=== PATIENT | female | born 1970 | race Caucasian/White ===

== ENCOUNTER → 2017-08-07 | Outpatient (CLI) | payer OTHER ==
[~2017-08-07] MED LIST: CHOL1CAP34 PO; FOLI400T PO; PANT20TA2 PO; SIMV20TA PO; Z.0.NO CURRENT MEDS
[2017-08-07 12:30] LABS: HEMOGLOBIN 14.7 GM/DL (11.6-15.3); MEAN CORPUSCULAR HEMOGLOBIN 30.8 PG (27.0-34.0); MEAN CORPUSCULAR HGB CONC 34.2 % (32.0-36.0); PLATELET COUNT 361 TH/MM3 (150-450); RED BLOOD COUNT 4.78 MIL/MM3 (4.00-5.30); RED CELL DISTRIBUTION WIDTH 14.1 % (11.6-17.2); WHITE BLOOD COUNT 7.8 TH/MM3 (4.0-11.0)
[2017-08-07 12:40] LABS: BACTERIA, URINE OCC /hpf; BILIRUBIN, URINE NEG (NEG); BLOOD, URINE NEG (NEG); GLUCOSE,URINE NEG (NEG); KETONE, URINE NEG (NEG); MUCUS URINE FEW /lpf (OCC); NITRITE,URINE NEG (NEG); SQUAMOUS EPITHELIAL CELL URINE 5 /hpf (0-5); URINE COLOR YELLOW (YELLW/STRAW); URINE LEUKOCYTE ESTERASE LARGE (NEG)
[2017-08-07 13:26] LABS: BICARBONATE 26.4 MEQ/L (21.0-32.0); CALCIUM 9.8 MG/DL (8.5-10.1); CREATININE 0.81 MG/DL (0.50-1.00)
== END ==
LOC: CPRE 11:03
PROVIDERS: ATTEND Obstetrics & Gynecology
DX: Z01.812 Encounter for preprocedural laboratory examination (principal); R10.2 Pelvic and perineal pain
CPT/HCPCS: 36415; 80048; 81001; 84703; 85027

== ENCOUNTER 2017-08-15 06:11 | Inpatient (IN) | payer OTHER ==
[~2017-08-15] VITALS: Ht 160 cm; Wt 55.5 kg
[~2017-08-15 06:11] MED LIST changes: -Z.0.NO CURRENT MEDS
[2017-08-15] MEDS: LACTATED RINGER'S 1000 ML IV PRN (06:55)
[2017-08-15] MEDS ORDERED: SODIUM CHLORID 0.9% 500 ML IV PRN (07:00)
[2017-08-15] MEDS ORDERED: INSULIN HUMAN REGULAR 1,000 UNITS/10 ML VIAL SQ PRN (07:00)
[2017-08-15] MEDS ORDERED: POVIDONE IODINE 5% (ANTISEPSIS KIT) 4 APPLICATIONS EACH NARE PRN (07:00)
[2017-08-15] MEDS ORDERED: METOPROLOL TARTRATE 25 MG TAB PO PRN (07:00)
[2017-08-15] MEDS ORDERED: APREPITANT 40 MG CAP PO SCH (07:00)
[2017-08-15] MEDS ORDERED: CHLORHEXIDINE GLUCONATE 2 % 1 PACK (2 CLOTHS) TOPICAL PRN (07:00)
[2017-08-15] MEDS ORDERED: ceFAZolin 2 GM PREMIX 50 ML IV SCH (07:00)
[2017-08-15] MEDS ORDERED: BACT400T PO (07:02)
[2017-08-15] MEDS ORDERED: ARTIFICIAL TEARS OPTH OINT 3.5 APPLIC/3.5 GM TUBO ONE (07:03)
[2017-08-15] MEDS ORDERED: BUPIVACAINE HCL PF 0.25% 30 ML VIAL ONE (07:16)
[2017-08-15] MEDS ORDERED: FAMOTIDINE 20 MG/2 ML VIAL ONE (07:23)
[2017-08-15] MEDS ORDERED: SUGAMMADEX SODIUM 200 MG/2 ML VIAL IV PUSH ONE (10:14)
[2017-08-15] MEDS ORDERED: ACETAMINOPHEN 1000 MG/100 ML 100 ML IV ONE (10:14)
[2017-08-15] MEDS ORDERED: FUROSEMIDE 20 MG/2 ML VIAL ONE (10:29)
--- NOTE | 2017-08-15 13:31 | PD.OP ---
Operative Report Date of Surgery: Aug 15, 2017 Preoperative Diagnosis: Left ureteral injury Postoperative Diagnosis: Same Procedure: Cystoscopy with placement of left ureteral catheter, exploratory laparotomy with repair of left ureter with ureteral to ureteral anastomosis, left double-J stent insertion Anesthesia: PETER Surgeon: Aidan Mendez Research Administrator(s): Dr. Dumont Resident Surgeon: None Operation and Findings: 46-year-old female undergoing a total abdominal hysterectomy by Dr. Diez. Request was made for evaluation of possible left ureter injury. Under laparoscopic visualization there appeared to be a disrupted left ureter. Urology was consult did and the patient was already prepped and draped in usual sterile fashion, had received preprocedure antibiotics and was under general endotracheal tube anesthesia. She was in the dorsal lithotomy position. The 22 [place]i cystoscope was inserted into the bladder and the left ureteral orifice was identified. A 5 [place]i open-ended [place] catheter was inserted into the left ureteral orifice and under laparoscopic imaging the catheter was visualized in the lower abdomen exiting the distal aspect of the left ureter. The proximal section of the ureter was not identified under laparoscopic imaging. Decision was made in made to place the table in the low position and perform an exploratory laparotomy with repair and re-anastomosis of the patient' s left ureter. A 15 blade was used to make the opening incision extending from the symphysis pubis to the area below the umbilicus. Quinton's and Camper's fascia were then entered and the peritoneum was entered. A bladder retractor was then placed in position and she was placed in Trendelenburg allowing the bowel to travel cephalad. Retractors were placed and the open-ended catheter was then visualized in the lower abdomen. Dissection to locate the proximal aspect of the ureter was then undertaken identifying it partially attached to the lower ureter. Lateral dissection of the proximal segment of the ureter was undertaken and freeing up from its attachments superiorly. This was done for approximately 4 cm in the cephalad direction. The ureter was cut at the segment of transection. Viable ends were then identified and using the Marin scissors spatulation of the ureter on the proximal and distal aspect occurred. 3-0 chromic suture was then placed in an interrupted fashion with 4 sutures. Each suture was placed in the superior, inferior medial and lateral sides of the ureter. A water tight closure was performed. Prior to closing the ureter, the open-ended catheter was advanced up the ureter followed by a 0.35 sensor wire. Leaving the wire in place the catheter was then removed. A 6 [place]i 22 cm left double-J stent was placed with a good curl in the kidney and bladder. The Hutton was left in place. She tolerated the procedure well. The Hutton catheter will remain in for 7-10 days and the left ureteral stent will stay in for 6 weeks to allow for healing. In 6 weeks, she will undergo a cystoscopy with a pullout retrograde study with removal of her left double-J stent at that time. Aidan Mendez DO Aug 15, 2017 13:31
[2017-08-15] MEDS ORDERED: ONDANSETRON HCL 4 MG/2 ML VIAL IVP PRN (14:00)
[2017-08-15] MEDS ORDERED: SODIUM CHLORIDE 0.9% FLUSH 10 ML FLUSH IV FLUSH PRN ×2 (14:00)
[2017-08-15] MEDS ORDERED: NALOXONE HCL 0.4 MG/ML AMP IV PUSH PRN (14:00)
[2017-08-15] MEDS ORDERED: PROMETHAZINE INJ 25 MG/ML VIAL IM PRN (14:00)
[2017-08-15] MEDS: LACTATED RINGER'S 1000 ML INJ 1,000 ML IV SCH (14:35)
[2017-08-15] MEDS ORDERED: *ONDANSETRON 4 MG VIAL PERIprocedural Use ONLY ONE (14:41)
[2017-08-15] MEDS ORDERED: MIDAZOLAM HCL 2 MG/2 ML VIAL ONE (14:49)
[2017-08-15] MEDS ORDERED: *PROMETHAZINE 25 MG/ML VIAL PERIprocedural use ONLY ONE (14:53)
[2017-08-15] MEDS ORDERED: HYDROmorphone HCL PF 2 MG/ML VIAL ONE (15:17)
[2017-08-15] MEDS: MORPHINE SULFATE 30 MG/30 ML PCA IV SCH ×2 (15:34→18:51)
[2017-08-15] MEDS: SODIUM CHLORIDE 0.9% FLUSH 10 ML FLUSH IV FLUSH SCH ×3 (15:59→21:00)
[2017-08-15] MEDS ORDERED: DO NOT ADM ANY ANTICOAGULANT DRUGS PRN (16:00)
[2017-08-15] MEDS ORDERED: LORazepam 0.5 MG TAB PO PRN (16:00)
[2017-08-15 16:45] VITALS: BP 157/81; PULSE 100; RESP 20; TEMP 97.9; O2SAT 100
[2017-08-15] MEDS: SIMETHICONE 80 MG CHEWABLE TAB PO PRN (18:20)
[2017-08-15 18:41] VITALS: BP 88/50; PULSE 90; RESP 16
[2017-08-15 20:00] VITALS: BP 97/49; PULSE 81; RESP 16; TEMP 98; O2SAT 94
[2017-08-15] MEDS ORDERED: ZOLPIDEM TARTRATE 5 MG TAB PO PRN (21:00)
[2017-08-15] MEDS: PCA - TOTAL MG MORPHINE DELIVERED PER SHIFT SCH (22:00)
[2017-08-15] MEDS: DOCUSATE SODIUM 100 MG CAP PO SCH (23:48)
[2017-08-16] VITALS: BP_SYST 89; BP_SYST 90; BP_DIAS 41; BP_DIAS 42; PULSE 59; RESP 16; TEMP 97.6; O2SAT 96
[2017-08-16 04:00] VITALS: BP_SYST 84; BP_SYST 90; BP_DIAS 41; BP_DIAS 52; PULSE 61; RESP 18; TEMP 98.1; O2SAT 96
[2017-08-16 05:55] LABS: AUTOMATED NEUTROPHIL # 12.5 TH/MM3 (1.8-7.7); BASOPHIL % 0.2 % (0.0-2.0); HEMATOCRIT 31.9 % (35.0-46.0); HEMOGLOBIN 10.9 GM/DL (11.6-15.3); LYMPH % 12.5 % (9.0-44.0); LYMPHOCYTE # 1.9 TH/MM3 (1.0-4.8); MEAN CELL VOLUME 89.2 FL (80.0-100.0); MEAN CORPUSCULAR HEMOGLOBIN 30.5 PG (27.0-34.0); MEAN CORPUSCULAR HGB CONC 34.1 % (32.0-36.0); MEAN PLATELET VOLUME 7.6 FL (7.0-11.0); MONO % 5.7 % (0.0-8.0); MONOCYTE # 0.9 TH/MM3 (0-0.9); NEUT % 81.6 % (16.0-70.0); PLATELET COUNT 274 TH/MM3 (150-450); RED BLOOD COUNT 3.57 MIL/MM3 (4.00-5.30); RED CELL DISTRIBUTION WIDTH 13.8 % (11.6-17.2); WHITE BLOOD COUNT 15.3 TH/MM3 (4.0-11.0)
[2017-08-16] MEDS: PCA - TOTAL MG MORPHINE DELIVERED PER SHIFT SCH ×2 (06:00→15:11)
[2017-08-16 06:25] LABS: BICARBONATE 26.4 MEQ/L (21.0-32.0); CALCIUM 8.9 MG/DL (8.5-10.1); CREATININE 0.76 MG/DL (0.50-1.00)
[2017-08-16] MEDS: LACTATED RINGER'S 1000 ML INJ 1,000 ML IV SCH ×2 (06:41→15:11)
[2017-08-16] MEDS: LACTATED RINGER'S 1000 ML IV PRN (06:41)
[2017-08-16] MEDS: MORPHINE SULFATE 30 MG/30 ML PCA IV SCH ×3 (07:38→20:00)
[2017-08-16 08:00] VITALS: BP 87/41; PULSE 74; RESP 12; TEMP 98; O2SAT 93
--- NOTE | 2017-08-16 08:51 | MP ---
cc: ROMULO MENDEZ,ANDREW Joseph M.D. DATE OF PROCEDURE 08/15/2017. PREOPERATIVE DIAGNOSES Patient with chronic pelvic pain, history of pelvic endometriosis, dyspareunia, history of stress urinary incontinence with previous placement of a transobturator tape. Chronic constipation. PROCEDURES Exam under anesthesia, operative laparoscopy with robotic-assisted total hysterectomy with bilateral salpingo-oophorectomy, incidental laceration to left ureter with intraoperative consultation by Dr. Romulo Souza with open repair and reanastomosis of the left ureter, cystourethroscopy. POSTOPERATIVE DIAGNOSES Patient with chronic pelvic pain, history of pelvic endometriosis, dyspareunia, history of stress urinary incontinence with previous placement of a transobturator tape. Chronic constipation. SURGEONS MD Andrea Dumont MD ESTIMATED BLOOD LOSS 200 cc. DRAINS Hutton to gravity. Left ureteral stent placement by Dr. Mendez. OPERATIVE FINDINGS The patient had known history of endometriosis with pelvic adhesive disease, previous documented endometriosis evident. Examination of the upper quadrants, appendix and large and small bowel appeared free of any involvement. The tubes and ovaries were normal in size, shape and appearance. The cystoscopy demonstrated absent flow of the left ureter during the examination. The bladder itself appeared normal. Recommendation was to obtain intraoperative consultation by Dr. Mendez the urologist utilization supervisor. Please see Dr. Mendez' separate dictation for his procedure. INDICATIONS FOR PROCEDURE Patient with a chronic history of pelvic pain, debilitating, necessitating the need for frequent pain medication. The patient was counseled to her options. Evaluation and treatment options were discussed at length. After careful consideration, the patient elected for total hysterectomy. She also requested that both tubes and ovaries be removed, aware of the potential for hormone-replacement therapy requirements. The patient also had a history of transobturator tape placed for stress incontinence previously which has developed into recurrent symptoms over the last year or so. PROCEDURE The patient received Ancef 2 grams prophylactically. The patient underwent general anesthesia with endotracheal intubation. She was carefully positioned in dorsal lithotomy position using Raj stirrups on the lower extremities. She was prepped and draped. Again sequentials were placed on the lower extremities for VTE prophylaxis. After she was prepped and draped, time-out was conducted and agreed on by all present in the room. The patient was examined. Hutton catheter was inserted by sterile technique. The cervix was visualized by simple bivalve retractor. A V-Care device was inserted, suturing the cervix to the V-Care cup. Retractors were removed. Gloves were changed. The abdomen was examined. She had previous laparoscopic incisions that were well-healed. No definitive herniation or abnormality on the abdominal surface. The initiation of the procedure started by injecting the umbilical port site with 0.25% plain Marcaine, injecting with about to 2-3 cc and using a 5-mm visible port trocar was placed directly into the perineal cavity without complication. Accessory ports were then placed on the right and left and then the patient was placed in steep Trendelenburg positioning for examination of the pelvic anatomy. The findings were described above. The procedure initiated by placing a 12-mm camera port in the umbilicus and an accessory 8-mm port on the patient's right upper flank. After visualization of the anatomy and confirmation to proceed with the planned procedure, the [employer] patient cart was side-docked with the #2 arm on the left and #1 and #3 on the right. Monopolar scissors were attached to the #2 operative arm with a bipolar [place] grasper on the #1 and a fenestrated grasper in the #3 camera with a 0-degree lens. No complication. No collisions were incurred. Good articulation was noted. Attention was directed to the surgeon cart where dissection was initiated after identifying all vital structures. The round ligaments were divided equally using a combination of monopolar and sharp dissection. This allowed dissection of the bladder away from the lower uterine segment. The infundibulopelvic vessels were skeletonized equally and careful attention was placed to visualization of the ureters bilaterally. There was no involvement with the ureters during this aspect of the procedure. The uterine artery and vein were skeletonized, ligated hemostatically bilaterally without complication and then elevation of the V-Care device was used to provide delineation of the vaginal apex and the cervix to allow dissection to afford colpotomy. The colpotomy incisions were made both anterior and posterior allowing separation of the cervix with the uterus intact with the fallopian tubes and ovaries bilaterally. Specimen was retrieved through the vaginal opening. The vaginal cuff was then examined and then after the sutures were introduced vaginally by the itinerant teacher assistant, #1 Stratafix was used, unipolar barbed suture was used to close the cuff with good result. Two separate sutures were necessary for the closure. Examination of the pelvic anatomy appeared normal. The bladder was intact. There was no bleeding or hematoma. There was no free fluid. At this point the suture needles were trimmed. The robotic patient cart was undocked. Straight laparoscopy was then utilized. Suture needles were removed and retrieved and full count was made and correct. Examination of the pelvis was dry. Irrigation of the pelvis and aspiration of fluid proved hemostatic. The umbilical port site was then closed with a crossbow technique with a #1 Vicryl suture with good results. The remaining trocar sites, after confirmation of hemostasis, were removed after decompression of the pneumoperitoneum. The skin incisions were closed with a subcuticular suture of 4-0 Monocryl. Attention was directed back to the pelvis where examination of the cuff was intact. There was no active bleeding. The 5-mm laparoscope was used to examine the bladder and evaluate the ureteral orifices, back-filling of the Hutton with about 200 cc of normal saline. Examination demonstrated no patency or active flow of the left ureter despite use of indigo carmine and Lasix. The remainder of the bladder was intact. The right ureter was peristalsing and injecting urine normally. The concern for compromise of the left ureter was made. Dr. Romulo Mendez was consulted. The patient was then reexamined laparoscopically with a straight 5-mm laparoscope used to examine the operative site, placing the 5-mm trocar through the patient's right flank port. Two other 5-mm ports were utilized using the same entry points from the robotic procedure. Dr. Mendez proceeded to place a catheter through the left ureter, identifying the loss of integrity of the left ureter, requiring repair. Please refer to his separate operative report for details. At the completion of Dr. Mendez' reanastomosis, the vaginal cuff which was opened to the facilitate dissection and repair of the left ureter was closed with a #1 Vicryl suture with good result. No hematoma and no bleeding was incurred. No active drainage from the bladder or the anastomosis site was noted. At completion of the procedure hemostatic powder was introduced and placed over the vaginal cuff for added security. The peritoneum was then closed with a running suture of 2-0 Monocryl after removing all instruments and retractors. The muscle bellies were reapproximated loosely. the fascia was then closed with 0 Vicryl starting from each pole and bringing it towards the midline and then closing the subcutaneous space after irrigation and confirming hemostasis. The space was closed with a running suture of 2-0 Monocryl. 4-0 Monocryl was used to close the skin in a subcuticular fashion with Steri-Strips applied over the incision. The trocars and incisions were then closed in the same fashion with a 4-0 Monocryl subcuticularly. After completion of the closure, a full count was made and correct. The patient was stable. She was taken to the recovery room and extubated on room air. Clear urine was draining through the Hutton catheter. Andrew Dumont MD SJPadilla/SSB /2:56 PM /8:16 AM
[2017-08-16] MEDS: SODIUM CHLORIDE 0.9% FLUSH 10 ML FLUSH IV FLUSH SCH ×2 (09:09)
[2017-08-16] MEDS: SIMETHICONE 80 MG CHEWABLE TAB PO PRN ×2 (09:56→20:41)
[2017-08-16] MEDS: DOCUSATE SODIUM 100 MG CAP PO SCH ×2 (09:56→20:40)
[2017-08-16 12:00] VITALS: BP 96/58; PULSE 73; RESP 14; TEMP 98.4
--- NOTE | 2017-08-16 12:08 | HHI.PR ---
Subjective Remarks pod#1, S/P TLH/BSO, incidental left ureteral injury with immediate repair Pain is managed with federal mediator morphine, No fever/chills,N/V/D.l. Objective Vital Signs Vital Signs Date Time Temp Pulse Resp B/P (MAP) Pulse Ox O2 Delivery O2 Flow Rate FiO2 08/16/17 08:00 98.0 74 12 87/41 (56) 93 08/16/17 07:38 16 08/16/17 06:00 18 08/16/17 04:00 98.1 61 18 84/41 (55) 96 90/52 (65) 08/16/17 00:00 97.6 59 16 89/41 (57) 96 90/42 (58) 08/15/17 22:00 18 08/15/17 20:00 98.0 81 16 97/49 (65) 94 08/15/17 18:51 20 08/15/17 18:41 90 16 88/50 (63) 08/15/17 16:45 97.9 100 20 157/81 (106) 100 08/15/17 16:00 97.5 93 19 119/62 (81) 100 Nasal Cannula 2 08/15/17 16:00 97.5 08/15/17 15:45 91 20 119/62 (81) 99 Nasal Cannula 2 08/15/17 15:34 15 08/15/17 15:30 85 18 114/56 (75) 100 Nasal Cannula 2 08/15/17 15:15 87 17 109/54 (72) 100 Nasal Cannula 2 08/15/17 15:00 93 20 110/56 (74) 100 Nasal Cannula 2 08/15/17 14:45 88 22 105/59 (74) 100 Nasal Cannula 2 08/15/17 14:35 96.5 84 25 108/59 (75) 100 Nasal Cannula 2 08/15/17 14:35 96.5 I/O 08/15/17 08/15/17 08/15/17 08/16/17 08/16/17 08/16/17 07:00 15:00 23:00 07:00 15:00 23:00 Intake Total 2600 ml 131 ml Output Total 1200 ml 400 ml 350 ml Balance 1400 ml -269 ml -350 ml Intake Oral 10 ml IV Total 2600 ml 121 ml Output Urine Total 1000 ml 400 ml 350 ml Estimated Blood Loss 200 ml Result Diagram: 08/16/17 0502 08/16/17 0502 Objective Remarks Chest is clear, regular rate and rhythm. Abdomen is soft and non-distended. Incision is clean and dry. Ext no CCE. contreras draining clear urine,no blood A/P Assessment and Plan Post Op Day 1 Stable; Lenghty discussion on surgical procedures,complication and repair by Dr Mendez. She is concerned about the "pill cam" that she has not yet passed,she has a normal abdominal exam,no BM/diarrhea. The nurses will monitor bowel function and watch for "cam". Plan on using RN OCCUPATIONAL through today with toradol for breakthrough. Patient instructed on need to leave contreras for the next 10 days and left ureteral stent per Dr Mendez.. Andrew Dumont MD Aug 16, 2017 12:08
--- NOTE | 2017-08-16 13:26 | HHI.PR ---
Subjective Patient symptoms today Pt seen and examined. Feels well. Some incisional pain noted. No other complaints. Objective Vital Signs Vital Signs Date Time Temp Pulse Resp B/P (MAP) Pulse Ox O2 Delivery O2 Flow Rate FiO2 08/16/17 12:06 14 08/16/17 12:00 98.4 73 14 96/58 (71) 08/16/17 08:00 98.0 74 12 87/41 (56) 93 08/16/17 07:38 16 08/16/17 06:00 18 08/16/17 04:00 98.1 61 18 84/41 (55) 96 90/52 (65) 08/16/17 00:00 97.6 59 16 89/41 (57) 96 90/42 (58) 08/15/17 22:00 18 08/15/17 20:00 98.0 81 16 97/49 (65) 94 08/15/17 18:51 20 08/15/17 18:41 90 16 88/50 (63) 08/15/17 16:45 97.9 100 20 157/81 (106) 100 08/15/17 16:00 97.5 93 19 119/62 (81) 100 Nasal Cannula 2 08/15/17 16:00 97.5 08/15/17 15:45 91 20 119/62 (81) 99 Nasal Cannula 2 08/15/17 15:34 15 08/15/17 15:30 85 18 114/56 (75) 100 Nasal Cannula 2 08/15/17 15:15 87 17 109/54 (72) 100 Nasal Cannula 2 08/15/17 15:00 93 20 110/56 (74) 100 Nasal Cannula 2 08/15/17 14:45 88 22 105/59 (74) 100 Nasal Cannula 2 08/15/17 14:35 96.5 84 25 108/59 (75) 100 Nasal Cannula 2 08/15/17 14:35 96.5 Intake & Output 08/16/17 08/16/17 07:00 19:00 Output Total 350 ml Balance -350 ml Output Urine Total 350 ml Result Diagram: 08/16/17 0502 08/16/17 0502 Objective Remarks Abd:soft,slight bloating, incisional tenderness Contreras with clear urine Wound: dressing intact Medications and IVs Current Medications Medications (Trade) Dose Ordered Sig/Lobito Route Start Time Stop Time Status Last Admin (Lopressor) 25 mg JEWELRY MAKER PRN PO 08/15/17 07:00 08/18/17 06:59 (Betadine 5% Antisepsis Kit) 1 applic JEWELRY MAKER PRN EACH NARE 08/15/17 07:00 08/18/17 06:59 08/15/17 07:05 (Chlorhexidine 2% Cloth) 3 pack JEWELRY MAKER PRN TOPICAL 08/15/17 07:00 08/18/17 06:59 08/15/17 06:30 (NovoLIN R INJ) See Protocol Table ... JEWELRY MAKER PRN SQ 08/15/17 07:00 08/18/17 06:59 Lactated Ringer's 1,000 ml @ 125 mls/hr Q8H IV 08/15/17 13:51 08/16/17 06:41 (Motrin) 600 mg Q6H PRN PO 08/15/17 16:00 (Toradol Inj) 30 mg Q6H PRN IVP 08/15/17 16:00 08/20/17 15:59 (Zofran Inj) 4 mg Q6H PRN IVP 08/15/17 14:00 (Phenergan Inj) 25 mg Q6H PRN IM 08/15/17 14:00 (Colace) 100 mg Q12HR PO 08/15/17 21:00 08/16/17 09:56 (Ambien) 5 mg HS PRN PO 08/15/17 21:00 (Ativan) 0.25 mg Q8H PRN PO 08/15/17 16:00 (Narcan Inj) 0.4 mg UNSCH PRN IV PUSH 08/15/17 14:00 (Morphine 1 Mg/ ml ADMINISTRATIVE JOB TITLES) 30 mg UNSCH IV 08/15/17 14:00 08/16/17 12:06 ADMINISTRATIVE JOB TITLES Dosage Infused (Pha) 1 Q8HR .XX 08/15/17 14:00 08/16/17 06:00 (NS Flush) 2 ml UNSCH PRN IV FLUSH 08/15/17 14:00 (NS Flush) 2 ml BID IV FLUSH 08/15/17 14:00 08/15/17 15:59 Miscellaneous Information ALL NURSING DEPARTME... UNSCH PRN .XX 1/31/18 16:00 08/16/17 15:59 (Mylicon Chew) 80 mg Q8H PRN PO 08/15/17 18:00 08/16/17 09:56 Cefazolin Sodium 1000 mg/Sodium Chloride 100 ml @ 200 mls/hr Q12H IV 08/16/17 13:00 Assessment and Plan Assessment and Plan Stable s/p KAILA with left ureteral repair Maintain contreras Cysto with stent removal with pullout RPG in 6 weeks Aidan Mendez DO Aug 16, 2017 13:26
[2017-08-16 16:00] VITALS: BP 100/54; PULSE 74; RESP 12; TEMP 98; O2SAT 96
[2017-08-16 20:30] VITALS: BP 117/59; PULSE 81; RESP 18; TEMP 98.8; O2SAT 98
[2017-08-16] MEDS: KETOROLAC TROMETHAMINE 30 MG/ML (IVP) VIAL IVP PRN (20:41)
[2017-08-17] VITALS (7 sets, daily range): BP systolic 103–138; BP diastolic 53–76; PULSE 72–90; RESP 14–17; TEMP 97.6–100; O2SAT 94–97
[2017-08-17] MEDS: KETOROLAC TROMETHAMINE 30 MG/ML (IVP) VIAL IVP PRN (05:48)
[2017-08-17] MEDS: PCA - TOTAL MG MORPHINE DELIVERED PER SHIFT SCH (06:00)
[2017-08-17 06:01] LABS: BASOPHIL % 0.4 % (0.0-2.0); EOSINOPHIL # 0.1 TH/MM3 (0-0.4); EOSINOPHIL % 0.9 % (0.0-4.0); HEMATOCRIT 29.9 % (35.0-46.0); HEMOGLOBIN 10.4 GM/DL (11.6-15.3); LYMPH % 28.7 % (9.0-44.0); LYMPHOCYTE # 2.7 TH/MM3 (1.0-4.8); MEAN CELL VOLUME 90.3 FL (80.0-100.0); MEAN CORPUSCULAR HEMOGLOBIN 31.5 PG (27.0-34.0); MEAN CORPUSCULAR HGB CONC 34.9 % (32.0-36.0); MEAN PLATELET VOLUME 7.6 FL (7.0-11.0); MONO % 6.8 % (0.0-8.0); MONOCYTE # 0.6 TH/MM3 (0-0.9); NEUT % 63.2 % (16.0-70.0); PLATELET COUNT 245 TH/MM3 (150-450); RED BLOOD COUNT 3.32 MIL/MM3 (4.00-5.30); RED CELL DISTRIBUTION WIDTH 13.9 % (11.6-17.2); WHITE BLOOD COUNT 9.6 TH/MM3 (4.0-11.0)
[2017-08-17] MEDS: LACTATED RINGER'S 1000 ML INJ 1,000 ML IV SCH (07:27)
[2017-08-17] MEDS: MORPHINE SULFATE 30 MG/30 ML PCA IV SCH (07:30)
--- NOTE | 2017-08-17 08:33 | HHI.PR ---
Subjective Remarks POD#2 ; Doing well, pain is well controlled, eating well. passing gas Denies fever/chills/N/v/D. Objective Vital Signs Vital Signs Date Time Temp Pulse Resp B/P (MAP) Pulse Ox O2 Delivery O2 Flow Rate FiO2 08/17/17 07:30 98.6 08/17/17 07:30 18 08/17/17 06:00 18 08/17/17 05:36 100.0 90 16 114/59 (77) 94 08/17/17 00:30 98.5 76 16 103/55 (71) 97 08/16/17 20:30 98.8 81 18 117/59 (78) 98 08/16/17 20:00 18 08/16/17 16:00 98.0 74 12 100/54 (69) 96 08/16/17 15:11 16 08/16/17 12:06 14 08/16/17 12:00 98.4 73 14 96/58 (71) I/O 08/16/17 08/16/17 08/16/17 08/17/17 08/17/17 08/17/17 07:00 15:00 23:00 07:00 15:00 23:00 Output Total 350 ml 1650 ml 800 ml Balance -350 ml -1650 ml -800 ml Output Urine Total 350 ml 1650 ml 800 ml Result Diagram: 08/17/17 0510 08/16/17 0502 Objective Remarks Chest is clear, regular rate and rhythm. Abdomen is soft and non-distended. Incision is clean and dry.Dressing removed Ext no CCE. 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 constipation remains an issue, will increase cathartic. anticipate discharge for tomorrow. Andrew Dumont MD Aug 17, 2017 08:33
--- NOTE | 2017-08-17 11:19 | HHI.PR ---
Subjective Patient symptoms today Pt seen and examined. Resting comfortably. Objective Vital Signs Vital Signs Date Time Temp Pulse Resp B/P (MAP) Pulse Ox O2 Delivery O2 Flow Rate FiO2 08/17/17 07:30 98.6 08/17/17 07:30 18 08/17/17 06:00 18 08/17/17 05:36 100.0 90 16 114/59 (77) 94 08/17/17 00:30 98.5 76 16 103/55 (71) 97 08/16/17 20:30 98.8 81 18 117/59 (78) 98 08/16/17 20:00 18 08/16/17 16:00 98.0 74 12 100/54 (69) 96 08/16/17 15:11 16 08/16/17 12:06 14 08/16/17 12:00 98.4 73 14 96/58 (71) Intake & Output 08/17/17 08/17/17 07:00 19:00 Output Total 1775 ml Balance -1775 ml Output Urine Total 1775 ml Result Diagram: 08/17/17 0510 08/16/17 0502 Objective Remarks Abd:soft,slight bloating, incisional tenderness Contreras with clear urine Wound: dressing intact 08/17 Abd:soft,nt,nd Contreras with clear urine Medications and IVs Current Medications Medications (Trade) Dose Ordered Sig/Lobito Route Start Time Stop Time Status Last Admin (Lopressor) 25 mg RIG BUILDER HELPER PRN PO 08/15/17 07:00 08/18/17 06:59 (Betadine 5% Antisepsis Kit) 1 applic RIG BUILDER HELPER PRN EACH NARE 08/15/17 07:00 08/18/17 06:59 08/15/17 07:05 (Chlorhexidine 2% Cloth) 3 pack RIG BUILDER HELPER PRN TOPICAL 08/15/17 07:00 08/18/17 06:59 08/15/17 06:30 (NovoLIN R INJ) See Protocol Table ... RIG BUILDER HELPER PRN SQ 08/15/17 07:00 08/18/17 06:59 Lactated Ringer's 1,000 ml @ 125 mls/hr Q8H IV 08/15/17 13:51 08/17/17 07:27 (Motrin) 600 mg Q6H PRN PO 08/15/17 16:00 (Toradol Inj) 30 mg Q6H PRN IVP 08/15/17 16:00 08/20/17 15:59 08/17/17 05:48 (Zofran Inj) 4 mg Q6H PRN IVP 08/15/17 14:00 (Phenergan Inj) 25 mg Q6H PRN IM 08/15/17 14:00 (Colace) 100 mg Q12HR PO 08/15/17 21:00 08/16/17 20:40 (Ambien) 5 mg HS PRN PO 08/15/17 21:00 (Ativan) 0.25 mg Q8H PRN PO 08/15/17 16:00 (NS Flush) 2 ml UNSCH PRN IV FLUSH 08/15/17 14:00 (NS Flush) 2 ml BID IV FLUSH 08/15/17 14:00 08/15/17 15:59 (Mylicon Chew) 80 mg Q8H PRN PO 08/15/17 18:00 08/16/17 20:41 Cefazolin Sodium 1000 mg/Sodium Chloride 100 ml @ 200 mls/hr Q12H IV 08/16/17 13:00 08/17/17 00:35 ([place] 5-325 Mg) 1 tab Q4H PRN PO 08/17/17 08:30 ([place] 10-325 Mg) 1 tab Q4H PRN PO 08/17/17 08:30 (Miralax) 17 gm DAILY PO 08/17/17 09:00 Assessment and Plan Assessment and Plan Stable s/p KAILA with left ureteral repair Maintain contreras Cysto with stent removal with pullout RPG in 6 weeks 08/17 Stable s/p KAILA with left ureteral repair Stable for discharge from standpoint with contreras OK to remove contreras next Sunday at 's office Aidan Mendez DO Aug 17, 2017 11:19
[2017-08-17] MEDS: DOCUSATE SODIUM 100 MG CAP PO SCH ×2 (12:42→22:17)
[2017-08-17] MEDS: ACETAMINOPHEN/HYDROcodone 325 MG/5 MG TAB PO PRN ×2 (12:43→13:56)
[2017-08-17] MEDS: IBUPROFEN 600 MG TAB PO PRN ×2 (13:45→19:42)
[2017-08-17] MEDS: POLYETHYLENE GLYCOL 17 GM PKG PO SCH (14:49)
[2017-08-17] MEDS: ACETAMINOPHEN/HYDROcodone 325 MG/10 MG TAB PO PRN ×2 (17:35→22:17)
[2017-08-17] MEDS: diphenhydrAMINE HCL 50 MG CAP PO PRN ×2 (17:35→23:55)
[2017-08-18] VITALS: BP 143/68; PULSE 79; RESP 16; TEMP 97.8; O2SAT 95
[2017-08-18] MEDS: IBUPROFEN 600 MG TAB PO PRN (04:38)
[2017-08-18] MEDS: ACETAMINOPHEN/HYDROcodone 325 MG/10 MG TAB PO PRN ×2 (04:38→08:46)
[2017-08-18 05:50] VITALS: BP 145/69; PULSE 67; RESP 16; TEMP 97.8
[2017-08-18 08:00] VITALS: BP 140/69; PULSE 72; RESP 15; TEMP 98.1; O2SAT 95
[2017-08-18] MEDS: SODIUM CHLORIDE 0.9% FLUSH 10 ML FLUSH IV FLUSH SCH (08:34)
[2017-08-18] MEDS: DOCUSATE SODIUM 100 MG CAP PO SCH (08:46)
[2017-08-18] MEDS: POLYETHYLENE GLYCOL 17 GM PKG PO SCH (08:46)
[2017-08-18] MEDS: SIMETHICONE 80 MG CHEWABLE TAB PO PRN (08:46)
[2017-08-18] MEDS ORDERED: NITROFURANTOIN MONOHYD MACROCR 100 MG CAP PO SCH (09:00)
--- NOTE | 2017-08-18 09:05 | HHI.PR ---
Subjective Remarks Doing well, pain is well controlled, eating well.Continues to be constipated.No N/V/D Objective Vital Signs Vital Signs Date Time Temp Pulse Resp B/P (MAP) Pulse Ox O2 Delivery O2 Flow Rate FiO2 08/18/17 08:00 98.1 72 15 140/69 (92) 95 08/18/17 05:50 97.8 67 16 145/69 (94) 08/18/17 00:00 97.8 79 16 143/68 (93) 95 08/17/17 19:34 98.2 76 17 138/76 (96) 94 08/17/17 17:36 98.3 82 14 124/71 (88) 95 08/17/17 11:46 98.0 72 15 121/53 (75) 95 I/O 08/17/17 08/17/17 08/17/17 08/18/17 08/18/17 08/18/17 07:00 15:00 23:00 07:00 15:00 23:00 Output Total 800 ml 1050 ml 650 ml 1450 ml Balance -800 ml -1050 ml -650 ml -1450 ml Output Urine Total 800 ml 1050 ml 650 ml 1450 ml Result Diagram: 08/17/17 0510 08/16/17 0502 Objective Remarks Chest is clear, regular rate and rhythm. Abdomen is soft and non-distended. Incision is clean and dry. Ext no CCE. contreras draining clear urine,no blood A/P Assessment and Plan Post Op Day #3 Stable; doing well,No new issues; discussed discharge and follow up care; contreras will remain until next week and will be removed at postop visit. Dr Mendez will see her postop to discussed removal of ureteral stent @6 weeks. Andrew Dumont MD Aug 18, 2017 09:05
--- NOTE | 2017-08-18 09:07 | HHI.DCPOC ---
Discharge Care Plan Your Health Problems Are: Abdominal pain Fever, temperature>100.4 Incisions/drains Pelvic pain Vaginal bleeding Report Symptoms to Your Doctor -Temperature above 100.5 degrees -Redness, of incision or excessive or foul smelling drainage -Unusual pain or calf pain -Increased vaginal bleeding -Painful or difficulty urinating -Feelings of extreme sadness or anxiety after 2 weeks Goals to Promote Your Health * To prevent worsening of your condition and complications * To maintain your health at the optimal level Directions to Meet Your Goals Take your medications as prescribed Follow your dietary instruction Follow activity as directed Ensure plenty of rest for recovery Drink fluids for hydration Keep your appointments as scheduled Take your immunizations and boosters as scheduled If your symptoms worsen call your PCP, if no PCP go to Urgent Care Center or Emergency Room Smoking is Dangerous to Your Health. Avoid second hand smoke Call the 24-hour crisis hotline for domestic abuse at Andrew Dumont MD Aug 18, 2017 09:07
== END 2017-08-18 10:32 | disposition home or self-care (01) | DRG 742 ==
LOC: HSDC 06:11 → HSDI 13:55 → H1EA 16:57
PROVIDERS: ADMIT Obstetrics & Gynecology; ATTEND Obstetrics & Gynecology
PROC: 0UT94ZZ Resection of Uterus, Percutaneous Endoscopic Approach (ICD-10-PCS; 2017-08-15)
PROC: 0TQ70ZZ Repair Left Ureter, Open Approach (ICD-10-PCS; 2017-08-15)
PROC: 8E0W4CZ Robotic Assisted Procedure of Trunk Region, Percutaneous Endoscopic Approach (ICD-10-PCS; 2017-08-15)
PROC: 0T778DZ Dilation of Left Ureter with Intraluminal Device, Via Natural or Artificial Opening Endoscopic (ICD-10-PCS; 2017-08-15)
PROC: 0T9B70Z Drainage of Bladder with Drainage Device, Via Natural or Artificial Opening (ICD-10-PCS; 2017-08-15)
PROC: 0UT24ZZ Resection of Bilateral Ovaries, Percutaneous Endoscopic Approach (ICD-10-PCS; principal; 2017-08-15 08:02)
PROC: 0UT74ZZ Resection of Bilateral Fallopian Tubes, Percutaneous Endoscopic Approach (ICD-10-PCS; 2017-08-15 08:02)
DX: N80.3 Endometriosis of pelvic peritoneum (principal); N99.71 Accidental puncture and laceration of a genitourinary system organ or structure during a genitourinary system procedure; G89.29 Other chronic pain; R10.2 Pelvic and perineal pain; N94.10 Unspecified dyspareunia; N39.3 Stress incontinence (female) (male); K59.09 Other constipation
CPT/HCPCS: 80048; 85025; 86850; 86900; 86901; 88305; 88307; 94150; J0131; J0690; J1170; J1885; J1940; J2250; J2270; J2405; J2550; J3010; J7120; J8501; Q0163

== ENCOUNTER 2017-08-29 05:47 | Emergency (ER) | payer OTHER ==
[~2017-08-29] VITALS: Ht 162.6 cm; Wt 65.0 kg
[2017-08-29 05:51] VITALS: BP 142/84; PULSE 88; RESP 16; TEMP 98.1; O2SAT 100
--- NOTE | 2017-08-29 06:15 | PD ---
HPI Chief Complaint: Abdominal Pain Time Seen by Provider: 06:08 Travel History International Travel<30 days: No Contact w/Intl Traveler<30days: No Traveled to known affect area: No History of Present Illness HPI The patient is a 46 year old female who presents to the [facility] emergency department with a history of abdominal pain that began this afternoon around 4:30 PM. The patient is 2 weeks postop status post robotic assisted total abdominal hysterectomy, however this was complicated by left ureteral injury and the wound was converted to an open wound on the lower aspect of the abdomen when the urologist, Dr. Mendez had to get involved. The hysterectomy was done by Dr. Dumont. The patient reports that a ureteral stent was placed in the left ureter. She reports that she had a Hutton catheter in place until a week ago. She reports having some pressure with urination, however no dysuria, hematuria, urinary urgency or frequency. She had her postop appointment with Dr. Dumont today and appeared to be healing well. She then developed the abdominal pain this afternoon. At midnight it recurred again. The initial episode lasted for 45 minutes, subsequent episode since then lasts for a few minutes every 30 minutes. She reports that the pain is a sharp cramping sensation along the lower abdomen. She reports that she had a mild episode of this on Sunday evening, however it resolved with moving her bowels. She moved her bowels again at midnight without any relief. She reports having nausea associated with the pain without vomiting. The patient's other history from an abdominal standpoint includes GI problems that she reports have been present for years with loose stools that only occur 1 time per week. She was in the process of having this worked up by a agent when a CT scan of the abdomen and pelvis revealed fibroids of the uterus and other gynecologic abnormalities that precipitated the hysterectomy. The patient reports that in June she did have breath testing done that revealed bacterial overgrowth in her small intestine. She underwent a 2 week course of antibiotic. Additionally she was recently on a 5 day course of ciprofloxacin postop. She reports that she is no longer on pain medication at home for the surgery. Otherwise on review of systems, the patient denies having any known recent fevers, cough, congestion, neck pain, chest pain, shortness of breath, or neurologic symptoms. [facility] Past Medical History Narrative Medical The patient's past medical history is significant for GI problems that are in the process of being worked up by a agent, history of fibroid tumors of the uterus, endometriosis status post total abdominal hysterectomy, history of ureteral disruption as complication of hysterectomy status post ureteral stent placement on the left. The patient has a history of hyperlipidemia. Cancer: No Cardiovascular Problems: No Diabetes: No Endocrine: No Gastrointestinal Disorders: Yes (GERD, "DELAYED EMPTYING") Genitourinary: Yes (UTI) Hepatitis: No Hiatal Hernia: No Hypertension: No Immune Disorder: No Medical other: No Musculoskeletal: No Neurologic: No Psychiatric: No Reproductive: Yes Respiratory: No Thyroid Disease: No ?: Not Past Surgical History Narrative Surgical The patient's past surgical history is significant for BTL, 2 laparoscopies, total hysterectomy, breast augmentation, cholecystectomy. Abdominal Surgery: Yes (GILBERTO) AICD: No Body Medical Devices: BREAST AUGMENTATION Genitourinary Surgery: Yes (BLADDER STENT ) Gynecologic Surgery: Yes (LAPAROSCOPY,TUBAL LIGATION) Hysterectomy: Yes Joint Replacement: No Pacemaker: No Other Surgery: Yes Social History Alcohol Use: No Tobacco Use: Yes (07/17 ppd) Substance Use: No Allergies-Medications (Allergen,Severity, Reaction): Coded Allergies: No Known Allergies (Verified Allergy, Unknown, 08/29/17) Reported Meds & Prescriptions Reported Meds & Active Scripts Active Reported Vitamin D3 (Cholecalciferol) 50,000 Unit Cap 50,000 Units PO Q7D Pantoprazole (Pantoprazole Sodium) 20 Mg Tab 20 PO DAILY Simvastatin 20 Mg Tab 20 Mg PO HS Folic Acid 0.4 Mg Tab Unknown Dose PO DAILY Review of Systems Except as stated in HPI: all other systems reviewed are Neg General / Constitutional: No: Fever Eyes: No: Visual changes HENT: No: Headaches Cardiovascular: No: Chest Pain or Discomfort Respiratory: No: Shortness of Breath Gastrointestinal: Positive: Nausea, Abdominal Pain, No: Vomiting Genitourinary: No: Dysuria Musculoskeletal: No: Pain Skin: No Rash Neurologic: No: Weakness Psychiatric: No: Depression Endocrine: No: Polydipsia Hematologic/Lymphatic: No: Easy Bruising Physical Exam Narrative General: The patient is a well-developed well-nourished female in no acute distress. Head and Neck exam: Head is normocephalic atraumatic. Eyes: EOMI, pupils are equal round and reactive to light. Nose: Midline septum with pink mucous membranes Mouth: Dentition unremarkable. Moist mucus membranes. Posterior oropharynx is not erythematous. No tonsillar hypertrophy. Uvula midline. Airway patent. Neck: No palpable lymphadenopathy. No nuchal rigidity. No thyromegaly. Cardiovascular: Regular rate and rhythm without murmurs, gallops, or rubs. Lungs: Clear to auscultation bilaterally. No wheezes, rhonchi, or rales. Abdomen: Soft, with normal bowel sounds audible, tenderness reported in all quadrants of the abdomen, however worse along the right and left lower quadrants. No specific point tenderness over McBurney's point. No guarding, rebound, or rigidity. Negative Denson's sign. Extremities: No clubbing, cyanosis, or edema. 2+ pulses in all 4 extremities. No calf tenderness on palpation. Back: No spinous process tenderness to palpation. Bilateral CVA tenderness is reported on palpation. Neurologic Exam: Grossly nonfocal. Skin Exam: No rash noted. Intact skin that is warm and dry. Data Data Last Documented VS Vital Signs Date Time Temp Pulse Resp B/P (MAP) Pulse Ox O2 Delivery O2 Flow Rate FiO2 08/29/17 05:51 98.1 88 16 142/84 (103) 100 Orders Orders Complete Blood Count With Diff (08/29/17 06:22) Comprehensive Metabolic Panel (08/29/17:22) C-Reactive Protein (Crp) (08/29/17 06:22) Lipase (08/29/17 06:22) Urinalysis - C+S If Indicated (08/29/17:22) C Diff Toxin Pcr (08/29/17 06:22) Ct Abd/Pel W Iv Contrast(Rout) (08/29/17 06:22) Iv Access Insert/Monitor (08/29/17 06:22) Ecg Monitoring (08/29/17:22) Oximetry (08/29/17:22) Stool Wbc (Leukocytes) (08/29/17 06:22) Sodium Chlor 0.9% 1000 Ml Inj (Ns 1000 M (08/29/17 06:30) Ondansetron Inj (Zofran Inj) (08/29/17 06:30) Morphine Inj (Morphine Inj) (08/29/17 06:30) MDM Medical Decision Making Medical Screen Exam Complete: Yes Emergency Medical Condition: Yes Medical Record Reviewed: Yes Differential Diagnosis Postoperative intra-abdominal abscess, versus colitis, versus constipation, versus pyelonephritis, versus ureteral spasms from stent placement Narrative Course During the course of the patient's emergency department visit, the patient's history, examination, and differential diagnosis were reviewed with the patient. The patient was placed on a quality assurance monitor final with oximetry and frequent blood pressure monitoring. The patient had IV access obtained and blood work sent for analysis. CT scan of the abdomen and pelvis was ordered. The patient was initially provided normal saline 1 L IV fluid bolus, morphine for pain, Zofran for nausea. The patient's laboratory and radiologic studies are pending at the conclusion of my shift. The patient's case will be checked out to the oncoming emergency physician disposition the patient based on the conclusion of the workup. Diagnosis Primary Impression: Postoperative abdominal pain Radha Caicedo MD Aug 29, 2017 06:15
[2017-08-29] MEDS ORDERED: SODIUM CHLOR 0.9% 1000 ML INJ 1,000 ML IV ONE (06:30)
[2017-08-29] MEDS ORDERED: ONDANSETRON HCL 4 MG/2 ML VIAL IV ONE (06:30)
[2017-08-29] MEDS ORDERED: MORPHINE SULFATE 2 MG/ML INJ IV PUSH ONE (06:30)
[2017-08-29 06:55] LABS: AUTOMATED NEUTROPHIL # 12.3 TH/MM3 (1.8-7.7); BASOPHIL # 0.1 TH/MM3 (0-0.2); BASOPHIL % 0.6 % (0.0-2.0); EOSINOPHIL # 0.5 TH/MM3 (0-0.4); EOSINOPHIL % 3.1 % (0.0-4.0); HEMATOCRIT 36.8 % (35.0-46.0); HEMOGLOBIN 12.7 GM/DL (11.6-15.3); LYMPH % 20.6 % (9.0-44.0); LYMPHOCYTE # 3.6 TH/MM3 (1.0-4.8); MEAN CELL VOLUME 88.7 FL (80.0-100.0); MEAN CORPUSCULAR HEMOGLOBIN 30.7 PG (27.0-34.0); MEAN CORPUSCULAR HGB CONC 34.6 % (32.0-36.0); MEAN PLATELET VOLUME 6.9 FL (7.0-11.0); MONO % 5.4 % (0.0-8.0); NEUT % 70.3 % (16.0-70.0); PLATELET COUNT 523 TH/MM3 (150-450); RED BLOOD COUNT 4.15 MIL/MM3 (4.00-5.30); RED CELL DISTRIBUTION WIDTH 13.8 % (11.6-17.2); WHITE BLOOD COUNT 17.5 TH/MM3 (4.0-11.0)
[2017-08-29 07:00] VITALS: BP 115/63; PULSE 77; RESP 18; O2SAT 99
[2017-08-29 07:07] LABS: ALBUMIN 3.7 GM/DL (3.4-5.0); ALT (GPT) 18 U/L (10-53); AST (GOT) 12 U/L (15-37); BICARBONATE 25.5 MEQ/L (21.0-32.0); BLOOD UREA NITROGEN 9 MG/DL (7-18); C-REACTIVE PROTEIN LESS THAN 0.29 MG/DL (0.00-0.30); CHLORIDE 106 MEQ/L (98-107); CREATININE 0.76 MG/DL (0.50-1.00); GLOMERULAR FILTRATION RATE 82 ML/MIN (>89); GLUCOSE,RANDOM 111 MG/DL (74-106); SODIUM (NA) 140 MEQ/L (136-145)
[2017-08-29 07:09] LABS: ALKALINE PHOSPHATASE 83 U/L (45-117); TOTAL BILIRUBIN ADULT 0.4 MG/DL (0.2-1.0); TOTAL PROTEIN 7.1 GM/DL (6.4-8.2)
--- NOTE | 2017-08-29 07:59 | PD ---
Physical Exam Date Seen by Provider: Aug 29, 2017 Narrative Care of this patient was assumed at 7 AM pending workup. Patient presented complaining with abdominal pain. Onset was about 4:30 PM. It lasted approximately 45 minutes and completely resolved. The pain recurred about midnight and has been occurring regularly recently minutes since that time. She describes a colicky pain which is sharp and cramping. It is rated 10/10 at its worst and 4/10 at its least. She states she had similar pain a couple of days ago which was relieved by bowel movement. She states that she has had a bowel movement since the onset of her pain today and that the pain has been unrelieved by a bowel movement. She is unaware of any exacerbating factor. This patient is status post a total abdominal hysterectomy approximately 3 weeks ago. The hysterectomy was complicated by injury to the left ureter which resulted in a left ureteral stent. She also had to have a Hutton catheter for about a week postop. She reports no ongoing problems with her in our system. She denies any dysuria, frequency, urgency. The patient has also been worked up by GI in the recent past for chronic constipation. That evaluation is ongoing. She has been treated with 2 antibiotics for bacterial overgrowth in her intestine. She has also recently been treated with Cipro because of the operative injury to her left ureter. GENERAL: Awake and alert and in no acute distress. SKIN: Warm and dry. HEAD: Normocephalic/atraumatic. EYES: Pupils are equal. Extraocular movements are intact. NECK: Normal range of motion. Distally RESPIRATORY: Nonlabored respirations. ABDOMEN: Abdomen is soft but diffusely tender. Capillary MUSCULOSKELETAL: Atraumatic. NEUROLOGICAL: Nonfocal. PSYCHIATRIC: Appropriate mood and affect. Data Data Last Documented VS Vital Signs Date Time Temp Pulse Resp B/P (MAP) Pulse Ox O2 Delivery O2 Flow Rate FiO2 08/29/17 07:00 77 18 115/63 (80) 99 Room Air 08/29/17 05:51 98.1 Orders Orders Complete Blood Count With Diff (08/29/17 06:22) Comprehensive Metabolic Panel (08/29/17 06:22) C-Reactive Protein (Crp) (08/29/17 06:22) Lipase (08/29/17 06:22) Urinalysis - C+S If Indicated (08/29/17 06:22) C Diff Toxin Pcr (08/29/17 06:22) Ct Abd/Pel W Iv Contrast(Rout) (08/29/17 06:22) Iv Access Insert/Monitor (08/29/17 06:22) Ecg Monitoring (08/29/17 06:22) Oximetry (08/29/17 06:22) Stool Wbc (Leukocytes) (08/29/17 06:22) Sodium Chlor 0.9% 1000 Ml Inj (Ns 1000 M (08/29/17 06:30) Ondansetron Inj (Zofran Inj) (08/29/17 06:30) Morphine Inj (Morphine Inj) (08/29/17 06:30) Iohexol 350 Inj (Omnipaque 350 Inj) (08/29/17 08:10) Morphine Inj (Morphine Inj) (08/29/17 08:30) Labs Laboratory Tests Test 08/29/17 06:40 08/29/17 07:54 White Blood Count 17.5 TH/MM3 Red Blood Count 4.15 MIL/MM3 Hemoglobin 12.7 GM/DL Hematocrit 36.8 % Mean Corpuscular Volume 88.7 FL Mean Corpuscular Hemoglobin 30.7 PG Mean Corpuscular Hemoglobin Concent 34.6 % Red Cell Distribution Width 13.8 % Platelet Count 523 TH/MM3 Mean Platelet Volume 6.9 FL Neutrophils (%) (Auto) 70.3 % Lymphocytes (%) (Auto) 20.6 % Monocytes (%) (Auto) 5.4 % Eosinophils (%) (Auto) 3.1 % Basophils (%) (Auto) 0.6 % Neutrophils # (Auto) 12.3 TH/MM3 Lymphocytes # (Auto) 3.6 TH/MM3 Monocytes # (Auto) 1.0 TH/MM3 Eosinophils # (Auto) 0.5 TH/MM3 Basophils # (Auto) 0.1 TH/MM3 CBC Comment DIFF FINAL Differential Comment Blood Urea Nitrogen 9 MG/DL Creatinine 0.76 MG/DL Random Glucose 111 MG/DL Total Protein 7.1 GM/DL Albumin 3.7 GM/DL Calcium Level 9.0 MG/DL Alkaline Phosphatase 83 U/L Aspartate Amino Transf (AST/SGOT) 12 U/L Alanine Aminotransferase (ALT/SGPT) 18 U/L Total Bilirubin 0.4 MG/DL Sodium Level 140 MEQ/L Potassium Level 3.9 MEQ/L Chloride Level 106 MEQ/L Carbon Dioxide Level 25.5 MEQ/L Anion Gap 9 MEQ/L Estimat Glomerular Filtration Rate 82 ML/MIN C-Reactive Protein LESS THAN 0.29 MG/DL Lipase 193 U/L Urine Color LIGHT-YELLOW Urine Turbidity CLEAR Urine pH 6.5 Urine Specific [place] 1.004 Urine Protein NEG mg/dL Urine Glucose (UA) NEG mg/dL Urine Ketones NEG mg/dL Urine Occult Blood NEG Urine Nitrite NEG Urine Bilirubin NEG Urine Urobilinogen LESS THAN 2.0 MG/DL Urine Leukocyte Esterase MOD Urine RBC 2 /hpf Urine WBC 2 /hpf Urine Squamous Epithelial Cells 1 /hpf Microscopic Urinalysis Comment CULT NOT INDICATED MDM Supervised Visit with WOO: No Differential Diagnosis Differential diagnosis of abdominal pain includes but is not limited to gastritis, pancreatitis, hepatitis, gastroenteritis, gallbladder disease, constipation, urinary retention, UTI, peptic ulcer disease, diverticulitis or appendicitis Narrative Course This patient presents for evaluation of abdominal pain. She is 3 weeks status post a total abdominal hysterectomy with injury to the left ureter. 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 Her checkup was unremarkable. CBC & BMP Diagram 08/29/17 06:40 Total Protein 7.1, Albumin 3.7, Calcium Level 9.0, Alkaline Phosphatase 83, Aspartate Amino Transf (AST/SGOT) 12 L, Alanine Aminotransferase (ALT/SGPT) 18, Total Bilirubin 0.4 CRP < 0.29 Last Impressions Abdomen/Pelvis CT 08/29/17 0622 Signed Impressions: Service Date/Time: Tuesday, August 29, 2017 07:57 - CONCLUSION: 1. There is a small volume of free fluid within the cul-de-sac. No CT evidence to suggest abscess or hematoma. 2. Prior hysterectomy. 3. Prior cholecystectomy. 4. Left sided double-J stent without hydronephrosis. Andrea Burrows Jr., MD UA neg No significant etiology for this patient's abdominal pain has been found. I will discharge her with a prescription for Bentyl and instructions to follow up with her physician if pain persists. Diagnosis Primary Impression: Postoperative abdominal pain Patient Instructions: Abdominal Pain (ED), General Instructions, Narcotic given in the ED Med/Other Pt SpecificInfo: Prescription(s) given Scripts Dicyclomine (Bentyl) 10 Mg Cap 20 MG PO QID for Bowel Management, #10 CAP 0 Refills Prov: Drea Escobedo MD 08/29/17 Disposition: 01 DISCHARGE HOME Condition: Stable Drea Escobedo MD Aug 29, 2017 07:58
[2017-08-29] MEDS ORDERED: IOHEXOL 350 MG/ML 10 ML VIAL (for RAD DIAG) IVCONTRAST ONE (08:10)
--- NOTE | 2017-08-29 08:25 | RADRPT ---
EXAM DATE/TIME: 08/29/2017 07:57 [place] COMPARISON: No previous studies available for comparison. INDICATIONS : Post op abdominal pain status post hysterectomy with ureter injury. IV CONTRAST: 90 cc Omnipaque 350 (iohexol) IV ORAL CONTRAST: No oral contrast ingested. RADIATION DOSE: 4.80 CTDIvol (mGy) MEDICAL HISTORY : Gastroesophageal reflux disease. SURGICAL HISTORY : Cholecystectomy. Hysterectomy.Ureter stent. ENCOUNTER: Initial ACUITY: 1 day PAIN SCALE: 5/10 LOCATION: Bilateral lower quadrant TECHNIQUE: Volumetric scanning of the abdomen and pelvis was performed. Using automated exposure control and ad justment of the mA and/or kV according to patient size, radiation dose was kept as low as reasonably achievable to obtain optimal diagnostic quality images. DICOM format image data is available electro nically for review and comparison. FINDINGS: LOWER LUNGS: The visualized lower lungs are clear. LIVER: Homogeneous density without lesion. There is no dilation of the biliary tree. Prior cholecystectomy. SPLEEN: Normal size without lesion. PANCREAS: Within normal limits. KIDNEYS: Normal in size and shape. A double-J stent is in good position on the left. There is no mass, stone o r hydronephrosis. ADRENAL GLANDS: Within normal limits. VASCULAR: There is no aortic aneurysm. BOWEL/MESENTERY: The stomach, small bowel, and colon demonstrate no acute abnormality. There is no free intraperitone al air. A small amount of free fluid is seen within the cul-de-sac. No air associated with this. ABDOMINAL WALL: Within normal limits. RETROPERITONEUM: There is no lymphadenopathy. BLADDER: No wall thickening or mass. REPRODUCTIVE: Prior hysterectomy. INGUINAL: There is no lymphadenopathy or hernia. MUSCULOSKELETAL: Within normal limits for patient age. CONCLUSION: 1. There is a small volume of free fluid within the cul-de-sac. No CT evidence to suggest abscess or hematoma. 2. Prior hysterectomy. 3. Prior cholecystectomy. 4. Left sided double-J stent without hydronephrosis. Andrea Burrows Jr., MD on August 29, 2017 at 8:18 Board Certified Radiologist. This report was verified electronically.
[2017-08-29 08:30] VITALS: BP 105/52; PULSE 80; RESP 16; O2SAT 97
[2017-08-29] MEDS ORDERED: MORPHINE SULFATE 4 MG/ML INJ IV PUSH ONE (08:30)
[2017-08-29 08:37] LABS: BILIRUBIN, URINE NEG (NEG); BLOOD, URINE NEG (NEG); GLUCOSE,URINE NEG (NEG); KETONE, URINE NEG (NEG); NITRITE,URINE NEG (NEG); PH, URINE 6.5 (5.0-8.5); SQUAMOUS EPITHELIAL CELL URINE 1 /hpf (0-5); URINE COLOR LIGHT-YELLOW (YELLW/STRAW); URINE LEUKOCYTE ESTERASE MOD (NEG)
[2017-08-29] MEDS ORDERED: DICY10 PO (08:42)
== END 2017-08-29 09:14 | disposition home or self-care (01) ==
LOC: NEPE 05:47
DX: G89.18 Other acute postprocedural pain (principal); R10.9 Unspecified abdominal pain; E78.5 Hyperlipidemia, unspecified; K21.9 Gastro-esophageal reflux disease without esophagitis; F17.200 Nicotine dependence, unspecified, uncomplicated; Z90.710 Acquired absence of both cervix and uterus
CPT/HCPCS: 74177; 80053; 81001; 83690; 85025; 86140; 96361; 96374; 96375; 96376; 99284; J2270; J2405; J7030; Q9967

== ENCOUNTER → 2017-10-04 | Day surgery (SDC) | payer OTHER ==
[~2017-10-04] VITALS: Ht 160 cm; Wt 54.6 kg
[~2017-10-04] MED LIST changes: +*morphine SULFATE 4 MG/ML PERIprocedure ONLY ONE; +ACETAMINOPHEN 1000 MG/100 ML 100 ML IV ONE; +CHLORHEXIDINE GLUCONATE 2 % 1 PACK (2 CLOTHS) TOPICAL PRN; +DO NOT ADM ANY ANTICOAGULANT DRUGS PRN; +ESTR1TAB PO; +FOLI1TAB6 PO; -FOLI400T PO; +LACTATED RINGER'S 1000 ML IV PRN; +METOPROLOL TARTRATE 25 MG TAB PO PRN; +MIDAZOLAM HCL 2 MG/2 ML VIAL ONE; +MORPHINE SULFATE 2 MG/ML INJ IV PRN; +NITR100C4 PO; +ONDANSETRON HCL 4 MG/2 ML VIAL IV PRN; -PANT20TA2 PO; +PANT40TA3 PO; +PHEN-537 PO; +POVIDONE IODINE 5% (ANTISEPSIS KIT) 4 APPLICATIONS EACH NARE PRN; +SODIUM CHLORID 0.9% 500 ML IV PRN; +ceFAZolin 1,000 MG/NS 100 ML IV SCH; +oxyCODONE/ACETAMINOPHEN 5 MG/325 MG TAB ONE; +oxyCODONE/ACETAMINOPHEN 5 MG/325 MG TAB PO PRN
[2017-10-04 07:18] LABS: AUTOMATED NEUTROPHIL # 4.1 TH/MM3 (1.8-7.7); BASOPHIL # 0.1 TH/MM3 (0-0.2); BASOPHIL % 1.4 % (0.0-2.0); EOSINOPHIL # 0.4 TH/MM3 (0-0.4); EOSINOPHIL % 4.8 % (0.0-4.0); HEMATOCRIT 35.9 % (35.0-46.0); HEMOGLOBIN 12.3 GM/DL (11.6-15.3); LYMPH % 36.6 % (9.0-44.0); LYMPHOCYTE # 3.1 TH/MM3 (1.0-4.8); MEAN CELL VOLUME 87.8 FL (80.0-100.0); MEAN CORPUSCULAR HEMOGLOBIN 30.1 PG (27.0-34.0); MEAN CORPUSCULAR HGB CONC 34.3 % (32.0-36.0); MEAN PLATELET VOLUME 7.2 FL (7.0-11.0); MONO % 7.9 % (0.0-8.0); MONOCYTE # 0.7 TH/MM3 (0-0.9); NEUT % 49.3 % (16.0-70.0); PLATELET COUNT 406 TH/MM3 (150-450); RED BLOOD COUNT 4.09 MIL/MM3 (4.00-5.30); RED CELL DISTRIBUTION WIDTH 13.3 % (11.6-17.2); WHITE BLOOD COUNT 8.4 TH/MM3 (4.0-11.0)
--- NOTE | 2017-10-04 09:11 | PD.OP ---
Operative Report Date of Surgery: Oct 04, 2017 Preoperative Diagnosis: History of left ureteral injury status post repair on 08/15/17 Postoperative Diagnosis: Same Procedure: Cystoscopy with left retrograde pyelogram and removal of left double-J stent Anesthesia: Gen. LMA Surgeon: Aidan Mendez Strategic Advisor(s): None Resident Surgeon: None Operation and Findings: 47-year-old female who underwent total abdominal hysterectomy on August 15, 2017. The patient had a left ureteral injury requiring repair. This was done without difficulty. She is here today to undergo cystoscopy with a polar retrograde study. Risk and benefits were discussed preoperatively and she was willing to proceed. Patient was brought to the operating room and identified by myself as Elizabeth Ruelas. She was placed in the dorsal lithotomy position, prepped and draped in usual sterile fashion, received preprocedure antibiotics, and general LMA anesthesia was administered. 22 [place] cystoscope was inserted in the bladder and the left ureter stent was identified. The stent was brought out to the urethral meatus. A 0.35 sensor wire was then passed through the stent and up into the kidney. The stent was removed over the wire. The cystoscope was then backloaded over the wire and the 5 [place] open-ended [place] catheter was inserted over the wire up into the distal ureter. The wire was then removed. A retrograde pyelogram was then performed demonstrating no evidence of any extravasation with good healing of the area that was repaired. The open-ended catheter was then removed and the bladder was evacuated. She tolerated the procedure well was awoken and transferred to the recovery room in stable condition. Aidan Mendez DO Oct 04, 2017 09:11
[2017-10-04 10:30] VITALS: BP 121/63; PULSE 70; RESP 20; TEMP 97.6; O2SAT 99
== END | disposition home or self-care (01) ==
LOC: HSDC 06:06
PROVIDERS: ATTEND Urology
DX: S37.10XD Unspecified injury of ureter, subsequent encounter (principal)
CPT/HCPCS: 00910; 52310; 74420; 85025; C1769; J0131; J0690; J2250; J2270; J3010; J7120